=== PATIENT | female | born 1995 | race Caucasian/White ===

== ENCOUNTER 2021-04-14 17:09 | Day surgery (SDC) | payer OTHER, MEDICAID ==
[2021-04-14 18:06] LABS: Fetal Membranes Rupture No Membranes Rupture (No Rupture)
[2021-04-14] MEDS ORDERED: hydrALAZINE 20 MG/ML VIAL SLOW IVP PRN (18:34)
== END 2021-04-14 19:30 | disposition home or self-care (01) ==
LOC: CSHLD/OP 17:09
PROVIDERS: ATTEND Family Medicine
DX: O99.891 Other specified diseases and conditions complicating pregnancy (principal); N89.8 Other specified noninflammatory disorders of vagina; O99.333 Smoking (tobacco) complicating pregnancy, third trimester; F17.210 Nicotine dependence, cigarettes, uncomplicated; Z3A.38 38 weeks gestation of pregnancy; Z88.8 Allergy status to other drugs, medicaments and biological substances
CPT/HCPCS: 84112; 99283